=== PATIENT | female | born 1975 | race Caucasian/White ===

== ENCOUNTER 2024-07-29 01:40 | Emergency (ER) | payer MEDICARE, OTHER | END 2024-07-29 04:20 | disposition home or self-care (01) | LOC: ED 01:40 | DX: F41.0 Panic disorder [episodic paroxysmal anxiety] (principal); F17.200 Nicotine dependence, unspecified, uncomplicated; Z88.0 Allergy status to penicillin; Z88.1 Allergy status to other antibiotic agents; Z88.5 Allergy status to narcotic agent; F43.10 Post-traumatic stress disorder, unspecified; Z79.899 Other long term (current) drug therapy ==